=== PATIENT | female | born 1975 | race Caucasian/White ===

== ENCOUNTER 2020-09-14 14:23 | Emergency (ER) | payer MEDICAID ==
[~2020-09-14] VITALS: Ht 154.9 cm; Wt 59.0 kg
[2020-09-14 14:42] VITALS: BP_SYST 118
[2020-09-14 15:43] LABS: BASOPHILS # (AUTO) 0.1 K/uL (0.0-0.2); BASOPHILS % (AUTO) 0.3 % (0.0-2.0); EOSINOPHILS % (AUTO) 0.1 % (0.0-4.0); HEMATOCRIT 35.1 % (36-48); LYMPHOCYTES # (AUTO) 1.9 K/uL (1.0-5.5); LYMPHOCYTES % (AUTO) 11.5 % (20.5-51.5); MEAN CORPUSCULAR HEMOGLOBIN 31 pg (27-31); MEAN CORPUSCULAR HGB CONC 34 % (32-36); MEAN CORPUSCULAR VOLUME 92 fL (79.0-98.0); MONOCYTES # (AUTO) 1.5 K/uL (0.0-1.0); MONOCYTES % (AUTO) 8.9 % (1.7-9.3); NEUTROPHILS # (AUTO) 13.1 K/uL (1.8-7.7); NEUTROPHILS % (AUTO) 79.2 % (40.0-70.0); PLATELET COUNT (AUTO) 383 K/uL (130-430); RED BLOOD CELL COUNT(AUTO) 3.84 MIL/uL (4.2-6.2); RED CELL DISTRIBUTION WIDTH 13.7 % (9.0-15.0); WHITE BLOOD COUNT (AUTO) 16.5 K/uL (4.8-10.8)
[2020-09-14 16:06] LABS: ALBUMIN 3.4 g/dL (3.4-4.8); CALCIUM 8.7 mg/dL (8.4-11.0); CREATININE 0.62 mg/dL (0.55-1.30); POTASSIUM 3.4 mmol/L (3.5-5.1); TOTAL BILIRUBIN 0.4 mg/dL (0.0-1.0)
[2020-09-14 16:22] LABS: INR 0.9 (0.8-1.2); PROTHROMBIN TIME 9.3 SECS (9.5-12.5)
[2020-09-14 17:40] LABS: BILIRUBIN,URINE NEGATIVE (NEGATIVE); BLOOD, URINE 1+ (NEGATIVE); COLOR,URINE YELLOW (YELLOW); GLUCOSE,URINE NEGATIVE (NEGATIVE); KETONES,URINE NEGATIVE (NEGATIVE); LEUKOCYTE ESTERASE ,URINE 2+ (NEGATIVE); NITRITE, URINE NEGATIVE (NEGATIVE); PROTEIN URINE NEGATIVE (NEGATIVE); UROBILINOGEN,URINE 0.2 (0.2-1.0)
[2020-09-14 18:04] LABS: BARBITURATE, URINE POSITIVE (NEG <=200); BENZODIAZEPINE, URINE NEGATIVE (NEG <=150); CANNABINOID, URINE NEGATIVE (NEG <=50); COCAINE, URINE NEGATIVE (NEG <=150); METHAMPHETAMINES SCREEN,URINE NEGATIVE (NEG <=500); OPIATE, URINE NEGATIVE (NEG <=100); PHENCYCLIDINE SCREEN,URINE NEGATIVE (NEG <=25); UR TRICYCLIC ANTIDEPRESSANTS NEGATIVE (NEG <=300); URINE AMPHETAMINE NEGATIVE (NEG <=500); URINE METHADONE NEGATIVE (NEG <=200); URINE OXYCODONE SCREEN NEGATIVE (NEG <=100); URINE PROPOXYPHENE SCREEN NEGATIVE (NEG <=300)
[2020-09-14 18:20] LABS: CLARITY/URINE HAZY (CLEAR)
[2020-09-14 18:36] LABS: BACTERIA,URINE FEW /HPF (None Seen); MUCUS,URINE 1+ /LPF (None Seen); RBC,URINE 0-3 /HPF (0-3); YEAST,URINE Few /HPF (None Seen)
[2020-09-14] MEDS ORDERED: cefTRIAXone 1 GM VIAL IM ONE (18:45)
[2020-09-14] MEDS ORDERED: NITR-85 PO (18:49)
[2020-09-14] MEDS ORDERED: cefTRIAXone 1 GM VIAL ONE (18:58)
[2020-09-14 19:20] VITALS: BP_SYST 118
== END 2020-09-14 19:20 | disposition home or self-care (01) ==
LOC: SED 14:23
DX: N39.0 Urinary tract infection, site not specified (principal); R33.9 Retention of urine, unspecified
CPT/HCPCS: 36415; 74176; 76376; 80053; 80307; 81000; 81025; 82150; 83605; 83690; 84703; 85025; 85610; 85730; 87086; 96372; 99284; J0696